=== PATIENT | female | born 1935 | race Caucasian/White ===

== ENCOUNTER 2022-08-13 04:13 | Day surgery (SDC) | payer OTHER, BC ==
[2022-08-09 10:34] VITALS: BMI 24.4
[2022-08-13] MEDS ORDERED: LIDOCAINE HCL 1%, 10 MG/ML (20ML VIAL) ONE (07:13)
[2022-08-13] MEDS ORDERED: BUPIVACAINE HCL/PF 0.5% (5MG/ML) 10 ML VIAL ONE (07:14)
[2022-08-13] MEDS ORDERED: PROPOFOL 20 ML ONE (07:38)
[2022-08-13] MEDS ORDERED: FENTANYL CITRATE/PF 50 MCG/ML VIAL ONE (07:38)
[2022-08-13] MEDS ORDERED: MIDAZOLAM HCL 2 MG/2 ML SINGLE DOSE VIAL ONE (07:39)
[2022-08-13] MEDS ORDERED: ceFAZolin SODIUM 1 GM VIAL ONE (08:30)
[2022-08-13] MEDS ORDERED: ceFAZolin SODIUM 1 GM VIAL IVPB ONE (08:31)
[2022-08-13] MEDS ORDERED: ONDANSETRON 4 MG/2 ML VIAL ONE (08:32)
[2022-08-13] MEDS ORDERED: LIDOCAINE HCL 1%, 10 MG/ML (20ML VIAL) NR ONE ×2 (08:36)
[2022-08-13] MEDS ORDERED: BUPIVACAINE HCL/PF 0.5% (5MG/ML) 10 ML VIAL IJ ONE ×2 (08:36)
[2022-08-13 10:14] VITALS: RESP 20; TEMP 97.3
[2022-08-13 11:35] VITALS: BP 118/68; PULSE 70
== END 2022-08-13 11:25 | disposition home or self-care (01) ==
LOC: JASU-SURG 04:13
PROVIDERS: ATTEND Orthopaedic Surgery
PROC: 01N50ZZ Release Median Nerve, Open Approach (ICD-10-PCS; principal; 2022-08-13 08:00)
DX: G56.02 Carpal tunnel syndrome, left upper limb (principal)
CPT/HCPCS: 88304-TC

== ENCOUNTER 2022-10-08 04:10 | Day surgery (SDC) | payer OTHER, BC ==
[2022-10-04 10:12] VITALS: BMI 25.9
[~2022-10-08 04:10] MED LIST: BUPIVACAINE HCL/PF 0.5% (5MG/ML) 10 ML VIAL IJ ONE; LIDOCAINE HCL 1%, 10 MG/ML (20ML VIAL) NR ONE
[2022-10-08 06:24] VITALS: RESP 20
[2022-10-08] MEDS ORDERED: MIDAZOLAM HCL 2 MG/2 ML SINGLE DOSE VIAL ONE (07:23)
[2022-10-08] MEDS ORDERED: LIDOCAINE HCL 1%, 10 MG/ML (20ML VIAL) ONE (07:23)
[2022-10-08] MEDS ORDERED: PROPOFOL 20 ML ONE (07:23)
[2022-10-08] MEDS ORDERED: BUPIVACAINE HCL/PF 0.5% (5MG/ML) 10 ML VIAL ONE (07:23)
[2022-10-08] MEDS ORDERED: ceFAZolin SODIUM 1 GM VIAL IVPB ONE (08:11)
[2022-10-08] MEDS ORDERED: DEXAMETHASONE SOD PHOSPHATE 4 MG/1 ML VIAL ONE (08:11)
[2022-10-08] MEDS ORDERED: ONDANSETRON 4 MG/2 ML VIAL ONE (08:11)
[2022-10-08] MEDS ORDERED: ceFAZolin SODIUM 1 GM VIAL ONE (08:11)
[2022-10-08] MEDS ORDERED: LIDOCAINE HCL 1%, 10 MG/ML (20ML VIAL) NR ONE ×2 (08:18→08:19)
[2022-10-08] MEDS ORDERED: BUPIVACAINE HCL/PF 0.5% (5MG/ML) 10 ML VIAL IJ ONE ×2 (08:18→08:19)
[2022-10-08 12:21] VITALS: BP 120/70; PULSE 70; TEMP 97
== END 2022-10-08 11:50 | disposition home or self-care (01) ==
LOC: JASU-SURG 04:10
PROVIDERS: ATTEND Orthopaedic Surgery
PROC: 01N50ZZ Release Median Nerve, Open Approach (ICD-10-PCS; principal; 2022-10-08 08:00)
DX: G56.01 Carpal tunnel syndrome, right upper limb (principal)
CPT/HCPCS: 88304-TC